=== PATIENT | female | born 1965 | race Two or more races ===

== ENCOUNTER 2024-07-27 09:48 | Outpatient (CLI) | payer OTHER | END 2024-07-27 09:50 | disposition home or self-care (01) | LOC: SONOGRAMA 09:48 | PROVIDERS: ATTEND Pathology Anatomic Pathology & Clinical Pathology | DX: D44.0 Neoplasm of uncertain behavior of thyroid gland (principal); E04.1 Nontoxic single thyroid nodule ==

== ENCOUNTER 2025-03-08 10:08 | Outpatient (CLI) | payer OTHER | END 2025-03-08 10:15 | disposition home or self-care (01) | LOC: SONOGRAMA 10:08 | PROVIDERS: ATTEND Pathology Anatomic Pathology & Clinical Pathology | DX: D34 Benign neoplasm of thyroid gland (principal); E04.1 Nontoxic single thyroid nodule ==